=== PATIENT | female | born 1945 | race Caucasian/White ===

== ENCOUNTER 2016-11-19 15:48 | Outpatient (CLI) | payer MEDICARE, OTHER | END 2016-11-19 15:49 | disposition home or self-care (01) | DX: Z12.31 Encounter for screening mammogram for malignant neoplasm of breast (principal) ==

== ENCOUNTER 2017-04-10 10:30 | Outpatient (CLI) | payer MEDICARE, OTHER ==
[2017-04-10 13:30] LABS: BASOPHILS # (AUTO) 0.1 10^3/uL (0.0-0.1); BASOPHILS % (AUTO) 1.1 %; EOSINOPHILS # (AUTO) 0.3 10^3/uL (0.0-0.7); EOSINOPHILS % (AUTO) 3.4 %; HCT - HEMATOCRIT 21.8 % (37.0-47.0); HGB - HEMOGLOBIN 6.3 g/dL (12.0-16.0); LYMPHOCYTES # (AUTO) 1.4 10^3/uL (1.5-3.5); LYMPHOCYTES % (AUTO) 16.6 %; MEAN CORPUSCULAR HEMOGLOBIN 22.1 pg (27.0-31.0); MEAN CORPUSCULAR HGB CONC 29.1 g/dL (32.0-36.0); MEAN CORPUSCULAR VOLUME 75.9 fL (81.0-99.0); MEAN PLATELET VOLUME 9.1 fL (7.9-10.8); MONOCYTES # (AUTO) 0.6 10^3/uL (0.0-1.0); MONOCYTES % (AUTO) 7.3 %; NEUTROPHILS # (AUTO) 6.1 10^3/uL (1.5-6.6); NEUTROPHILS % (AUTO) 71.6 %; NUCLEATED RED BLOOD CELLS AUTO 0.1 /100WBC; RED BLOOD COUNT 2.88 10^6/uL (4.20-5.40); RED CELL DISTRIBUTION WIDTH 20.1 % (12.0-15.0); UNCORRECTED WHITE BLOOD COUNT 8.5 x10^3/uL; WHITE BLOOD COUNT 8.5 x10^3/uL (4.8-10.8)
[2017-04-10 13:39] LABS: ALBUMIN/GLOBULIN RATIO 1.4 (1.0-2.2); BILIRUBIN,TOTAL 0.3 mg/dL (0.2-1.0); BUN - BLOOD UREA NITROGEN 16 mg/dL (6-20); CALCIUM 9.2 mg/dL (8.5-10.3); CARBON DIOXIDE - CO2 25 mmol/L (21-32); CHLORIDE 107 mmol/L (101-111); CREATININE 0.6 mg/dL (0.4-1.0); GFR - MDRD 98 (>89); GLUCOSE 121 mg/dL (70-100); IRON 7 ug/dL (28-170); SODIUM 140 mmol/L (135-145); TOTAL IRON BINDING CAPACITY 529 ug/dL (250-450); TOTAL PROTEIN 6.7 g/dL (6.7-8.2); TRANSFERRIN 378 mg/dL (192-382)
[2017-04-10 13:49] LABS: FERRITIN 9.4 ng/mL (11.0-306.8)
[2017-04-10 14:03] LABS: THYROID STIMULATING HORMONE 1.71 uIU/mL (0.34-5.60)
== END 2017-04-10 10:31 ==
LOC: LAB.WCP 10:30
PROVIDERS: ATTEND Family Medicine
DX: R53.83 Other fatigue (principal); D50.9 Iron deficiency anemia, unspecified; R05 Cough
CPT/HCPCS: 36415; 80053; 82728; 83540; 84443; 84466; 85025

== ENCOUNTER 2017-04-10 14:53 | Observation (INO) | payer MEDICARE, OTHER ==
--- NOTE | 2017-04-10 15:31 | ED Physician Documentation ---
PD HPI GI BLEED - Stated complaint Stated Complaint: SOA/WEAKNESS - Chief complaint Chief Complaint: General - History obtained from History obtained from: Patient - History of Present Illness Timing - onset: How many days ago (several) Timing - duration: Days (several) Timing - details: Gradual onset Associated symptoms: Black/tarry stool (states that she had black tarry stools, this has since resolved since starting back on her PPI.), Other (short of breath with walking 3-5 steps). No: Vomiting, Coffee ground emesis, Hematemesis , BRBPR, Maroon stool, Constipation, Abdominal pain, Dizzy, Near syncope / syncope, Loss of appetite Contributing factors: No: Sick contact, Bad food, Travel, Recent antibiotics, Alcohol use, Aspirin use, NSAID use, Stress, Anticoagulated, Diabetes Improved by: Other (rest) Worsened by: Other (walking) Similar symptoms before: Diagnosis Recently seen: Clinic (sent from Dr. Vieira office for transfusion after Hgb 6.3 on lab draw today. Colonoscopy last year, reportedly showed a polyp.) - Additional information Additional information: TKR February 2017 at [facility]. Review of Systems Ten Systems: 10 systems reviewed and negative Constitutional: denies: Fever, Chills Ears: denies: Ear pain Nose: denies: Rhinorrhea / runny nose, Congestion Throat: denies: Sore throat Cardiac: denies: Chest pain / pressure Respiratory: reports: Cough (dry). denies: Wheezing GI: denies: Abdominal Pain, Nausea, Vomiting, Diarrhea Skin: denies: Rash Musculoskeletal: denies: Neck pain, Back pain Neurologic: reports: Generalized weakness. 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 HEENT: Other - Present Medications Home Medications: Ambulatory Orders Medication Instructions Recorded Confirmed Atorvastatin Calcium [Lipitor] 40 mg PO DAILY 04/03/16 04/10/17 Esomeprazole Magnesium [Nexium] 10 mg PO DAILY 04/03/16 04/10/17 Felodipine [Felodipine ER] 5 mg PO DAILY 04/03/16 04/10/17 Loratadine 10 mg PO DAILY 04/03/16 04/10/17 Propranolol [Inderal] 60 mg PO DAILY 04/03/16 04/10/17 - Allergies Allergies/Adverse Reactions: Allergies Allergy/AdvReac Type Severity Reaction Status Date / Time venom-honey bee Allergy Edema Verified 04/04/16 13:42 [bee venom (honey bee)] PD ED PE NORMAL - Vitals Vital signs reviewed: Yes - General General: Alert and oriented X 3, No acute distress, Well developed/nourished - HEENT HEENT: PERRL, Moist mucous membranes - Neck Neck: Supple, no meningeal sign - Cardiac Cardiac: RRR, Strong equal pulses - Respiratory Respiratory: No respiratory distress, Clear bilaterally - Abdomen Abdomen: Soft, Non tender, Non distended - Rectal Rectal: Other (no stool in rectal vault. ) - Back Back: No spinal TTP - Derm Derm: Warm and dry, No rash - Extremities Extremities: No edema, No calf tenderness / cord - Neuro Neuro: Alert and oriented X 3 - Psych Psych: Normal mood, Normal affect Results - Vitals Vitals: Vital Signs - 24 hr 04/10/17 04/10/17 15:10 17:11 Temperature 36.4 C L Heart Rate 78 72 Respiratory 20 20 Rate Blood Pressure 124/63 130/53 L O2 Saturation 100 97 Oxygen O2 Source Room air - Labs Labs: Laboratory Tests 04/10/17 04/10/17 15:30 15:30 Blood Type A POSITIVE Cancelled Antibody Screen NEGATIVE Cancelled Crossmatch IS Only See Detail PD MEDICAL DECISION MAKING - ED course Complexity details: reviewed old records, reviewed results, re-evaluated patient , considered differential, d/w patient, d/w senior erp consultant ED course: Call placed to hospitalist at 1505. Patient is a 72-year-old female who presents to the emergency department with symptomatic anemia. Thought to be secondary to her gastric ulcers, dark stools have since resolved after taking her PPI. No stool in the rectal vault here. She is well-appearing, nontoxic. Afebrile. Discussed the case with the hospitalist who accepts. Also discussed with Dr. Ford, PCP who wants her placed in observation for blood transfusion. This document was made in part using voice recognition software. While efforts are made to proofread this document, sound alike and grammatical errors may occur. Departure - Departure Disposition: ED Place in Observation Clinical Impression: Symptomatic anemia Condition: Stable Discharge Date/Time: 04/10/17 18:30
[2017-04-10] MEDS ORDERED: ONDANSETRON ODT 4 MG TABLET TL PRN (18:06)
[2017-04-10] MEDS ORDERED: ACETAMINOPHEN 325 MG TABLET PO PRN (18:06)
--- NOTE | 2017-04-10 18:10 | HISTORY & PHYSICAL EXAMINATION ---
Chief Complaint - Chief Complaint Chief Complaint: Gi bleeding History of Present Illness - Admitted From Admitted From:: ER - History Obtained From Records Reviewed: yes History obtained from: patient - History of Present Illness HPI Comment/Other: Patient is a 72 year old female who presented to the ER with complaint of GI bleeding. Patient was sent from the Clinic (sent from Dr. Vieira office for transfusion after Hgb 6.3 on lab draw today. Colonoscopy last year, reportedly showed a polyp.) patient admits to weakness and fatigue. she has had similar symptoms in the past. She has been taking NSAID. she recently had a knee surgery and believes that using motrin afterwards might have contributed to the bleeding. She has no significant past medical history for the bleeding. She had some bleeding in her stool as well as emesis. 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 HEENT: reports: Other - POLST Patient has POLST: No Meds/Allgy - Home Medications Home Medications: Ambulatory Orders Medication Instructions Recorded Confirmed Atorvastatin Calcium [Lipitor] 40 mg PO DAILY 04/03/16 04/10/17 Esomeprazole Magnesium [Nexium] 10 mg PO DAILY 04/03/16 04/10/17 Felodipine [Felodipine ER] 5 mg PO DAILY 04/03/16 04/10/17 Loratadine 10 mg PO DAILY 04/03/16 04/10/17 Cholecalciferol [Vitamin D3] 5,000 unit PO BID #60 capsule 04/11/17 Propranolol ER [Inderal LA] 60 mg PO DAILY 04/11/17 04/11/17 - Allergies Allergies/Adverse Reactions: Allergies Allergy/AdvReac Type Severity Reaction Status Date / Time venom-honey bee Allergy Edema Verified 04/04/16 13:42 [bee venom (honey bee)] Exam - Vital Signs Reviewed Vital Signs: Yes Vital Signs: Vital Signs x48h Temp Pulse Resp BP Pulse Ox 04/10/17 17:11 72 20 130/53 L 97 04/10/17 15:10 36.4 C L 78 20 124/63 100 - Physical Exam General Appearance: positive: No acute distress, Alert Eyes Bilateral: positive: Normal inspection, PERRL, EOMI ENT: positive: ENT inspection nml, Pharynx nml, Dry mucous membranes Neck: positive: Nml inspection, Thyroid nml, No JVD, Trachea midline Respiratory: positive: Chest non-tender, No respiratory distress, Breath sounds nml Cardiovascular: positive: Regular rate & rhythm, No murmur, No gallop Abdomen: positive: Non-tender, No organomegaly, No distention. negative: Guarding, Rebound Rectal: positive: Stool - heme POS, Black stool, Bloody stool Back: positive: Nml inspection Skin: positive: No rash, Warm, Dry, Other (pale color) Extremities: positive: Non-tender, Full ROM, Nml appearance Neurologic/Psychiatric: positive: Oriented x3, CN's nml (2-12), Motor nml, Sensation nml, Mood/affect nml Conclusion/Plan - Problem List (1) Symptomatic anemia Conclusion/Plan: acute secondary to NSAID usage. transfused with 2 units of PRBC and give protonix 80mg IV now. monitor CBC in daily lab draws. tylenol and benadryl, lasix in between units. oxygen 2 liters NC for supplemental oxygen (2) Chronic GERD Conclusion/Plan: continue on PPI and avoid eating late in the evening (3) Obesity (BMI 30.0-34.9) Conclusion/Plan: continue on low fat low calorie diet and encourage ambulation and exercise (4) Vitamin D deficiency, unspecified Conclusion/Plan: chronic. continue on vitamin D supplement daily - Lab Results Lab results reviewed: Yes Fish Bones: 04/11/17 05:43 04/10/17 18:19 - EKG Results EKG Interpreted Independently: Yes Issues/Core Measures - Anticipated LOS Anticipated Stay Length: Less than 2 midnights - Issues Hospital Issues and Management Plan: Patient will need one overnight for transfusion of packed red blood cells. - DVT/VTE - Prophylaxis VTE/DVT Device ordered at admit?: No Not Ordered - Medical Reason: Contraindicated (patient has GI bleed and ambulating) VTE/DVT Prophylaxis med ordered at admit?: No Not Ordered - Medical Reason: Contraindicated (GI bleeding)
[2017-04-10] MEDS ORDERED: FUROSEMIDE 20 MG/2 ML VIAL IVP PRN (18:21)
[2017-04-10] MEDS ORDERED: diphenhydrAMINE INJ 50 MG/ML VIAL IVP PRN (18:24)
[2017-04-10 18:30] LABS: BASOPHILS # (AUTO) 0.1 10^3/uL (0.0-0.1); EOSINOPHILS # (AUTO) 0.3 10^3/uL (0.0-0.7); EOSINOPHILS % (AUTO) 3.7 %; IMMATURE RETIC FRACTION 0.48; LYMPHOCYTES # (AUTO) 1.7 10^3/uL (1.5-3.5); LYMPHOCYTES % (AUTO) 24.7 %; MEAN CORPUSCULAR HGB CONC 29.2 g/dL (32.0-36.0); MEAN CORPUSCULAR VOLUME 75.5 fL (81.0-99.0); MEAN PLATELET VOLUME 8.3 fL (7.9-10.8); MONOCYTES # (AUTO) 0.6 10^3/uL (0.0-1.0); MONOCYTES % (AUTO) 8.9 %; NEUTROPHILS # (AUTO) 4.2 10^3/uL (1.5-6.6); NEUTROPHILS % (AUTO) 61.7 %; NUCLEATED RED BLOOD CELLS AUTO 0.1 /100WBC; RED BLOOD COUNT 2.64 10^6/uL (4.20-5.40); RED CELL DISTRIBUTION WIDTH 20.6 % (12.0-15.0); UNCORRECTED WHITE BLOOD COUNT 6.9 x10^3/uL; WHITE BLOOD COUNT 6.9 x10^3/uL (4.8-10.8)
[2017-04-10 18:39] LABS: HGB - HEMOGLOBIN 5.8 g/dL (12.0-16.0)
[2017-04-10 19:24] LABS: FERRITIN 8.1 ng/mL (11.0-306.8)
[2017-04-10 19:29] LABS: ALBUMIN/GLOBULIN RATIO 1.5 (1.0-2.2); BILIRUBIN,TOTAL 0.2 mg/dL (0.2-1.0); CALCIUM 8.9 mg/dL (8.5-10.3); CREATININE 0.6 mg/dL (0.4-1.0); POTASSIUM 3.6 mmol/L (3.5-5.0); TOTAL PROTEIN 5.9 g/dL (6.7-8.2)
[2017-04-10] MEDS: SODIUM CHLORIDE FLUSH 0.9% 10 ML SYRINGE IVP PRN (19:49)
[2017-04-10] MEDS: PANTOPRAZOLE 40 MG VIAL IVP SCH (19:49)
[2017-04-10] MEDS: SODIUM CHLORIDE FLUSH 0.9% 10 ML SYRINGE IVP SCH (22:48)
[2017-04-11] MEDS: SODIUM CHLORIDE FLUSH 0.9% 10 ML SYRINGE IVP PRN ×2 (00:55→06:36)
[2017-04-11] MEDS: SODIUM CHLORIDE 0.9% 1,000 ML IV SCH ×2 (05:00→06:36)
[2017-04-11] MEDS: SODIUM CHLORIDE FLUSH 0.9% 10 ML SYRINGE IVP SCH (05:01)
[2017-04-11 06:03] LABS: HCT - HEMATOCRIT 27.5 % (37.0-47.0); HGB - HEMOGLOBIN 8.5 g/dL (12.0-16.0)
[2017-04-11] MEDS: PANTOPRAZOLE 40 MG VIAL IVP SCH (06:35)
[2017-04-11 07:47] VITALS: BP 130/55
[2017-04-11] MEDS ORDERED: IRON SUCROSE 100 MG in SODIUM CHLORIDE 0.9% 100ML 100 ML IV ONE ×2 (08:00→09:05)
[2017-04-11] MEDS ORDERED: PROPRANOLOL ER 60 MG CAPSULE PO SCH (09:00)
[2017-04-11] MEDS ORDERED: FELODIPINE ER 2.5 MG TABLET PO SCH (09:00)
[2017-04-11] MEDS ORDERED: POLYETHYLENE GLYCOL 3350 17 GM PACKET PO SCH (09:00)
[2017-04-11] MEDS ORDERED: CYANOCOBALAMIN 1,000 MCG/ML VIAL IM ONE (09:04)
--- NOTE | 2017-04-11 09:06 | Discharge Plan ---
Discharge Plan Disposition: Home, Self Care Condition: Good Prescriptions: Cholecalciferol [Vitamin D3] 5,000 unit PO BID #60 capsule Diet: Cardiac Activity Restrictions: Activity as Tolerated Shower Restrictions: No Driving Restrictions: No Weight Bearing: Full Weight Instruction Topics: ED Anemia Iron Deficiency, Fatigue Manage Additional Instructions or Follow Up instructions: Please continue on home medications as prescribed. You will need to take vitamin D and add ferrous sulfate to your diet. You have been given a prescription for these. Take more calcium daily as well. Please continue your regular diet and drink plenty of water daily Get plenty of sleep. 7-8 hours nightly. continue with rest breaks daily Walking is a great form of exercise. you need to get exercise daily, prefer 30 minutes a day followup with your primary care provider within 1 week of discharge. Stop taking NSAIDS like motrin or ibuprofen since these can make you bleed No Smoking: If you smoke, Please STOP! Call for help. Follow-up with: Alirio Ford MD [Primary Care Provider] -
--- NOTE | 2017-04-11 09:06 | DISCHARGE SUMMARY ---
"Discharge Summary Admit Date: 04/10/17 Discharge Date: 04/11/17 Discharging Provider: Meenakshi Garrett APRN Code Status: Attempt Resuscitation Condition at Discharge: Good Discharge Disposition: 01 Home, Self Care Discharge Facility Name: home - DIAGNOSES Admission Diagnoses: 1. acute GI bleeding with symptomatic anemia from blood loss 2. Vitamin D deficiency 3. Obesity with BMI>30 4. Chronic GERD Discharge Diagnoses with Status of Each Condition: 1. acute GI bleeding with symptomatic anemia from blood loss 2. Vitamin D deficiency 3. Obesity with BMI>30 4. Chronic GERD - HPI History of Present Illness: Timing - onset: How many days ago (several) Timing - duration: Days (several) Timing - details: Gradual onset Associated symptoms: Black/tarry stool (states that she had black tarry stools, this has since resolved since starting back on her PPI.), Other (short of breath with walking 3-5 steps). No: Vomiting, Coffee ground emesis, Hematemesis , BRBPR, Maroon stool, Constipation, Abdominal pain, Dizzy, Near syncope / syncope, Loss of appetite Contributing factors: No: Sick contact, Bad food, Travel, Recent antibiotics, Alcohol use, Aspirin use, NSAID use, Stress, Anticoagulated, Diabetes Improved by: Other (rest) Worsened by: Other (walking) Similar symptoms before: Diagnosis Recently seen: Clinic (sent from Dr. Vieira office for transfusion after Hgb 6.3 on lab draw today. Colonoscopy last year, reportedly showed a polyp.) - CONSULTS | PROCEDURES Consultations: none Procedures: Blood transfusion - HOSPITAL COURSE Hospital Course: Patient was seen recently at Clinic (sent from Dr. Vieira office for transfusion after Hgb 6.3 on lab draw today. Colonoscopy last year, reportedly showed a polyp.) She was admitted for 2 units of packed red blood cells with treatment with protonix 40mg BID for bleeding and for GERD. She continued on low calorie diet and encouraged for ambulation. She continued on her PPi for GERD and on blood pressure medications and statin for hyperlipidemia. She was discharged home the next day after her hemoglobin was checked and improved to > 8.5. She was stable and not symptomatic. She remained on oxygen for support while getting the PRBC. Vitals signs were stable at time of discharge. - ALLERGIES Allergies/Adverse Reactions: Allergies Allergy/AdvReac Type Severity Reaction Status Date / Time venom-honey bee Allergy Edema Verified 04/04/16 13:42 [bee venom (honey bee)] - MEDICATIONS Home Medications: Ambulatory Orders Medication Instructions Recorded Confirmed Atorvastatin Calcium [Lipitor] 40 mg PO DAILY 04/03/16 04/10/17 Esomeprazole Magnesium [Nexium] 10 mg PO DAILY 04/03/16 04/10/17 Felodipine [Felodipine ER] 5 mg PO DAILY 04/03/16 04/10/17 Loratadine 10 mg PO DAILY 04/03/16 04/10/17 Cholecalciferol [Vitamin D3] 5,000 unit PO BID #60 capsule 04/11/17 Propranolol ER [Inderal LA] 60 mg PO DAILY 04/11/17 04/11/17 - PHYSICAL EXAM AT DISCHARGE General Appearance: positive: No acute distress, Alert Eyes Bilateral: positive: Normal inspection, PERRL, EOMI ENT: positive: ENT inspection nml, Pharynx nml, No signs of dehydration Neck: positive: Nml inspection, Thyroid nml, No JVD, Trachea midline Respiratory: positive: Chest non-tender, No respiratory distress, Breath sounds nml Cardiovascular: positive: Regular rate & rhythm, No murmur, No gallop Peripheral Pulses: positive: 2+ Abdomen: positive: Non-tender Rectal: positive: Stool - heme POS Back: positive: Nml inspection Skin: positive: Color nml, No rash, Pallor (pale) Extremities: positive: Non-tender, Full ROM, Nml appearance, No pedal edema Neurologic/Psychiatric: positive: Oriented x3, CN's nml (2-12), Motor nml, Sensation nml, Mood/affect nml - LABS Result Diagrams: 04/11/17 05:43 04/10/17 18:19 - FOLLOW UP Follow Up: patient encouraged to followup with primary care provider to schedule an outpatient followup for colonoscopy. Time spent on discharge was 40 minutes for planning and education and assessment. Pt comfortable with plan and will return if he worsens. Pt counseled regarding expected course and signs and symptoms for which I believe an urgent re-evaluation would be necessary. Pt with good understanding and agreement to plan."
[2017-04-11] MEDS ORDERED: CHOLECALCIFEROL 5,000 UNIT CAPSULE PO SCH (10:00)
== END 2017-04-11 13:39 | disposition home or self-care (01) ==
LOC: ED 14:53 → OBS 17:27
PROVIDERS: ADMIT Nurse Practitioner; ATTEND Nurse Practitioner
DX: D62 Acute posthemorrhagic anemia (principal); K92.1 Melena; T39.315A Adverse effect of propionic acid derivatives, initial encounter; E55.9 Vitamin D deficiency, unspecified; E66.9 Obesity, unspecified; Z68.33 Body mass index [BMI] 33.0-33.9, adult; K21.9 Gastro-esophageal reflux disease without esophagitis; I10 Essential (primary) hypertension; E78.5 Hyperlipidemia, unspecified; Z96.659 Presence of unspecified artificial knee joint; Z86.010 Personal history of colon polyps; R53.83 Other fatigue; D50.9 Iron deficiency anemia, unspecified; R05 Cough
CPT/HCPCS: 36415; 36430; 80053; 82607; 82728; 83540; 83615; 84443; 84466; 85014; 85018; 85025; 85044; 86850; 86900; 86901; 86920; 96361; 96372; 96374; 96375; 96376; 99283; 99284; A9270; G0378; J1756; P9016

== ENCOUNTER 2017-05-03 08:46 | Outpatient (CLI) | payer MEDICARE, OTHER ==
[2017-05-03 12:59] LABS: ALBUMIN/GLOBULIN RATIO 1.4 (1.0-2.2); BILIRUBIN,TOTAL 0.4 mg/dL (0.2-1.0); BUN - BLOOD UREA NITROGEN 16 mg/dL (6-20); CALCIUM 9.4 mg/dL (8.5-10.3); CARBON DIOXIDE - CO2 28 mmol/L (21-32); CHLORIDE 104 mmol/L (101-111); CHOL/HDL RATIO 3.5 (<4.4); CHOLESTEROL 172 mg/dL; CREATININE 0.6 mg/dL (0.4-1.0); GFR - MDRD 98 (>89); GLUCOSE 107 mg/dL (70-100); HDL CHOLESTEROL 49 mg/dL; LDL/HDL RATIO 1.9 (<4.4); POTASSIUM 4.1 mmol/L (3.5-5.0); SODIUM 140 mmol/L (135-145); TOTAL PROTEIN 7.1 g/dL (6.7-8.2); TRIGLYCERIDES 143 mg/dL; VLDL CHOLESTEROL 29 mg/dL
== END 2017-05-03 08:47 | disposition home or self-care (01) ==
LOC: LAB.WCP 08:46
PROVIDERS: ATTEND Family Medicine
DX: G25.0 Essential tremor (principal); E78.9 Disorder of lipoprotein metabolism, unspecified; I10 Essential (primary) hypertension
CPT/HCPCS: 36415; 80053; 80061

== ENCOUNTER 2017-11-20 13:55 | Outpatient (CLI) | payer MEDICARE, OTHER ==
--- NOTE | 2017-11-21 14:18 | Mammography Report ---
DIGITAL SCREENING MAMMOGRAM: 11/20/2017 CLINICAL INDICATION: A 72-year-old for screening. COMPARISON: 10/2015, 10/2014, 09/2013, 08/2012, 08/2011, 07/2010. TECHNIQUE: Routine CC and MLO projections were obtained of the breasts. FINDINGS: The breasts again demonstrate scattered fibroglandular densities bilaterally. Asymmetric parenchyma in the right upper outer quadrant is stable. Coarse and punctate, typically benign calcifications are present. No suspicious masses, clustered microcalcifications, or regions of architectural distortion are identified. IMPRESSION: BENIGN FINDINGS. RECOMMENDATION: Routine annual screening unless otherwise clinically indicated. BIRADS CATEGORY 2 - benign findings. STANDARD QUALIFYING STATEMENTS: 1. This examination was reviewed with the aid of Computer-Aided Detection (CAD). 2. A negative or benign imaging report should not delay biopsy if clinically suspicious findings are present. Consider surgical consultation if warranted. More than 5% of cancers are not identified by imaging. 3. Dense breasts may obscure an underlying neoplasm. TD: 11/21/2017 14:17
== END 2017-11-20 13:56 | disposition home or self-care (01) ==
LOC: DI.N 13:55
PROVIDERS: ATTEND Obstetrics & Gynecology
DX: Z12.31 Encounter for screening mammogram for malignant neoplasm of breast (principal)
CPT/HCPCS: 77067

== ENCOUNTER 2018-06-25 09:45 | Outpatient (CLI) | payer MEDICARE, OTHER | END 2018-06-25 09:46 | disposition home or self-care (01) | LOC: LAB.R 09:45 | PROVIDERS: ATTEND Family Medicine | DX: K52.9 Noninfective gastroenteritis and colitis, unspecified (principal) | CPT/HCPCS: 81599; 83630; 87045; 87046; 87329; 87493 ==

== ENCOUNTER 2019-01-05 08:37 | Outpatient (CLI) | payer MEDICARE, OTHER ==
[2019-01-05 14:15] LABS: BASOPHILS # (AUTO) 0.1 10^3/uL (0.0-0.1); BASOPHILS % (AUTO) 0.7 %; EOSINOPHILS # (AUTO) 0.2 10^3/uL (0.0-0.7); HGB - HEMOGLOBIN 15.1 g/dL (12.0-16.0); LYMPHOCYTES # (AUTO) 1.6 10^3/uL (1.5-3.5); LYMPHOCYTES % (AUTO) 14.3 %; MEAN CORPUSCULAR HEMOGLOBIN 32.2 pg (27.0-31.0); MEAN CORPUSCULAR HGB CONC 33.4 g/dL (32.0-36.0); MEAN CORPUSCULAR VOLUME 96.5 fL (81.0-99.0); MEAN PLATELET VOLUME 8.7 fL (7.9-10.8); MONOCYTES # (AUTO) 0.7 10^3/uL (0.0-1.0); MONOCYTES % (AUTO) 6.7 %; NEUTROPHILS # (AUTO) 8.3 10^3/uL (1.5-6.6); NEUTROPHILS % (AUTO) 76.3 %; PLT - PLATELET COUNT 289 10^3/uL (130-450); RED CELL DISTRIBUTION WIDTH 12.9 % (12.0-15.0); WHITE BLOOD COUNT 10.8 x10^3/uL (4.8-10.8)
[2019-01-05 15:00] LABS: ALBUMIN/GLOBULIN RATIO 1.3 (1.0-2.2); ALKALINE PHOSPHATASE 66 IU/L (42-121); ALT ALANINE AMINOTRANSFERASE 19 IU/L (10-60); AST ASPARTATE AMINOTRANSFERASE 21 IU/L (10-42); BILIRUBIN,TOTAL 0.5 mg/dL (0.2-1.0); BUN - BLOOD UREA NITROGEN 13 mg/dL (6-20); CALCIUM 9.5 mg/dL (8.5-10.3); CARBON DIOXIDE - CO2 26 mmol/L (21-32); CHLORIDE 106 mmol/L (101-111); CHOL/HDL RATIO 3.5 (<4.4); CHOLESTEROL 170 mg/dL; CREATININE 0.6 mg/dL (0.4-1.0); GFR - MDRD 98 (>89); GLUCOSE 116 mg/dL (70-100); HDL CHOLESTEROL 49 mg/dL; LDL CHOLESTEROL,CALCULATED 89 mg/dL; LDL/HDL RATIO 1.8 (<4.4); SODIUM 139 mmol/L (135-145); VLDL CHOLESTEROL 32 mg/dL
== END 2019-01-05 08:38 | disposition home or self-care (01) ==
LOC: LAB.WCP 08:37
PROVIDERS: ATTEND Family Medicine
DX: I10 Essential (primary) hypertension (principal); E78.5 Hyperlipidemia, unspecified
CPT/HCPCS: 36415; 80053; 80061; 83721; 84443; 85025

== ENCOUNTER 2019-01-16 14:53 | Outpatient (CLI) | payer MEDICARE, OTHER ==
--- NOTE | 2019-01-19 08:43 | Mammography Report ---
Reason: SCREENING MAMMO Procedure Date: 01/16/2019 Accession Number: [id number] / [id number] Procedure: [facility] - Screening Mammo w/Lico CPT Code: FULL RESULT: EXAM: Screening Mammo w/Lico DATE: 01/16/2019 3:28 PM CLINICAL HISTORY: Screening encounter. No reported risk factors. TECHNIQUE: (B) - Bilateral CC and MLO views were obtained. COMPARISON: 11/20/2017 through 10/27/2014. PARENCHYMAL PATTERN: (A) - The breast(s) demonstrate(s) scattered fibroglandular densities. FINDINGS: There are coarse typically benign calcifications. There are no suspicious masses, calcifications, or areas of distortion. IMPRESSION: Benign findings. BI-RADS category 2. RECOMMENDATION: (ANNUAL) - Recommend routine annual screening mammography. BI-RADS CATEGORY: (2) - Benign Findings. STANDARD QUALIFYING STATEMENTS: 1. This examination was not reviewed with the aid of Computer-Aided Detection (CAD). 2. A negative or benign imaging report should not preclude biopsy if clinically suspicious findings are present. 3. Dense breasts may obscure an underlying neoplasm. 4. This examination was reviewed with the aid of 3D breast imaging (tomosynthesis).
== END 2019-01-16 14:54 | disposition home or self-care (01) ==
LOC: DI 14:53
DX: Z12.31 Encounter for screening mammogram for malignant neoplasm of breast (principal)
CPT/HCPCS: 77063; 77067

== ENCOUNTER 2019-04-02 08:00 | Outpatient (CLI) | payer MEDICARE, OTHER ==
[2019-04-02 12:56] LABS: BASOPHILS % (AUTO) 0.5 %; EOSINOPHILS # (AUTO) 0.2 10^3/uL (0.0-0.7); EOSINOPHILS % (AUTO) 2.9 %; HGB - HEMOGLOBIN 14.6 g/dL (12.0-16.0); LYMPHOCYTES # (AUTO) 1.7 10^3/uL (1.5-3.5); LYMPHOCYTES % (AUTO) 22.9 %; MEAN CORPUSCULAR HEMOGLOBIN 32.2 pg (27.0-31.0); MEAN CORPUSCULAR HGB CONC 31.9 g/dL (32.0-36.0); MEAN CORPUSCULAR VOLUME 100.9 fL (81.0-99.0); MEAN PLATELET VOLUME 10.6 fL (7.9-10.8); MONOCYTES # (AUTO) 0.6 10^3/uL (0.0-1.0); MONOCYTES % (AUTO) 7.8 %; NEUTROPHILS # (AUTO) 4.9 10^3/uL (1.5-6.6); NEUTROPHILS % (AUTO) 65.5 %; PLT - PLATELET COUNT 289 10^3/uL (130-450); RED BLOOD COUNT 4.53 10^6/uL (4.20-5.40); RED CELL DISTRIBUTION WIDTH 13.2 % (12.0-15.0); WHITE BLOOD COUNT 7.5 x10^3/uL (4.8-10.8)
[2019-04-02 13:24] LABS: ALBUMIN/GLOBULIN RATIO 1.4 (1.0-2.2); BILIRUBIN,TOTAL 0.9 mg/dL (0.2-1.0); CALCIUM 9.9 mg/dL (8.5-10.3); CREATININE 0.6 mg/dL (0.4-1.0); TOTAL PROTEIN 6.9 g/dL (6.7-8.2)
== END 2019-04-02 23:59 | disposition home or self-care (01) ==
LOC: LAB.WCP 08:00
PROVIDERS: ATTEND Family Medicine
DX: R73.9 Hyperglycemia, unspecified (principal); D50.9 Iron deficiency anemia, unspecified; I10 Essential (primary) hypertension
CPT/HCPCS: 36415; 80053; 82728; 83540; 84466; 85025

== ENCOUNTER 2019-10-06 07:49 | Outpatient (CLI) | payer MEDICARE, OTHER | END 2019-10-06 07:50 | disposition critical access hospital (66) | LOC: EMS 07:49 | PROVIDERS: ATTEND Surgery | DX: R00.0 Tachycardia, unspecified (principal) | CPT/HCPCS: A0425; A0427 ==

== ENCOUNTER 2019-10-06 08:13 | Observation (INO) | payer MEDICARE, OTHER ==
[2019-10-06] MEDS: SODIUM CHLORIDE 0.9% 1,000 ML IV ONE ×2 (08:35→11:29)
[2019-10-06 08:45] LABS: BASOPHILS % (AUTO) 0.4 %; EOSINOPHILS # (AUTO) 0.2 10^3/uL (0.0-0.7); HGB - HEMOGLOBIN 14.8 g/dL (12.0-16.0); LYMPHOCYTES # (AUTO) 1.4 10^3/uL (1.5-3.5); LYMPHOCYTES % (AUTO) 14.7 %; MEAN CORPUSCULAR HEMOGLOBIN 32.6 pg (27.0-31.0); MEAN CORPUSCULAR HGB CONC 32.6 g/dL (32.0-36.0); MEAN PLATELET VOLUME 9.9 fL (7.9-10.8); MONOCYTES # (AUTO) 0.7 10^3/uL (0.0-1.0); NEUTROPHILS % (AUTO) 75.3 %; PLT - PLATELET COUNT 289 10^3/uL (130-450); RED BLOOD COUNT 4.54 10^6/uL (4.20-5.40); RED CELL DISTRIBUTION WIDTH 12.5 % (12.0-15.0); WHITE BLOOD COUNT 9.4 x10^3/uL (4.8-10.8)
--- NOTE | 2019-10-06 08:47 | XRAY Report ---
Reason: chest pain Procedure Date: 10/06/2019 Accession Number: [id number] / [id number] Procedure: XR - Chest 1 View X-Ray CPT Code: 97723 Final Report FULL RESULT: EXAM: CHEST RADIOGRAPHY EXAM DATE: 10/06/2019 08:36 AM. CLINICAL HISTORY: Chest pain. COMPARISON: None. TECHNIQUE: 1 view. FINDINGS: Lungs/Pleura: No focal opacities evident. No pleural effusion. No pneumothorax. Mediastinum: There is cardiomegaly. There is there is rounded retrocardiac opacity which likely represents moderate to large size hiatal hernia. Other: There is bilateral shoulder degenerative disease. IMPRESSION: 1. There is cardiomegaly. 2. Likely moderate to large sized hiatal hernia. 3. No acute intrathoracic plain film abnormality. RADIA
[2019-10-06 08:53] LABS: PT - PROTHROMBIN TIME 11.6 secs (9.9-12.6)
[2019-10-06 08:59] LABS: ALBUMIN 3.8 g/dL (3.2-5.5); ALBUMIN/GLOBULIN RATIO 1.5 (1.0-2.2); CALCIUM 8.9 mg/dL (8.5-10.3); CREATININE 0.7 mg/dL (0.4-1.0); TOTAL PROTEIN 6.3 g/dL (6.7-8.2)
[2019-10-06] MEDS ORDERED: diltiaZEM INJ 5 MG/ML VIAL IVP STA (09:32)
[2019-10-06] MEDS: diltiaZEM INJ 125 MG in DEXTROSE 5% 100 ML IV STA ×2 (09:50→11:27)
--- NOTE | 2019-10-06 10:06 | ED Physician Documentation ---
History of Present Illness - Stated complaint Stated Complaint: RHR/ WEAKNESS - Chief complaint Chief Complaint: Cardiac - History obtained from History obtained from: Patient - History of Present Illness Timing: Today - Additonal information Additional information: This is a 74-year-old woman Who presents by ambulance with complaints that this morning her heart was racing. During the night she felt it when she got up to go to the bathroom but then it quit after a short period of time. And this morning around 7 AM she was beating so fast she felt she was going to pass out. She called the ambulance who found her in A. fib with rates in the 160s. They gave her 15 mg Cardizem bolus and she is feeling better. Patient denies any chest pain or shortness of breath. Maybe some mild nausea. No stuffiness or sore throat. She is never had anything like this before. She has chronic edema in her lower extremities and she has had a transfusion due to GI bleed following surgery and had to be transfused about 2 years ago. She still takes an iron supplement. Denies recent cough or dysuria. Review of Systems Constitutional: denies: Fever Eyes: denies: Loss of vision Nose: denies: Rhinorrhea / runny nose, Congestion Throat: denies: Sore throat Cardiac: reports: Palpitations, Pedal edema. denies: Chest pain / pressure Respiratory: denies: Dyspnea, Cough GI: reports: Nausea. denies: Vomiting, Diarrhea : denies: Dysuria Neurologic: reports: Generalized weakness, Near syncope. 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 HEENT: Other - Present Medications Home Medications: Ambulatory Orders Medication Instructions Recorded Confirmed Atorvastatin Calcium [Lipitor] 40 mg PO DAILY 04/03/16 04/10/17 Esomeprazole Magnesium [Nexium] 10 mg PO DAILY 04/03/16 04/10/17 Felodipine [Felodipine ER] 5 mg PO DAILY 04/03/16 04/10/17 Loratadine 10 mg PO DAILY 04/03/16 04/10/17 Cholecalciferol [Vitamin D3] 5,000 unit PO BID #60 capsule 04/11/17 Propranolol ER [Inderal LA] 60 mg PO DAILY 04/11/17 04/11/17 - Allergies Allergies/Adverse Reactions: Allergies Allergy/AdvReac Type Severity Reaction Status Date / Time venom-honey bee Allergy Edema Verified 04/04/16 13:42 [bee venom (honey bee)] - Social History Does the pt smoke?: No Smoking Status: Never smoker Does the pt drink ETOH?: No Does the pt have substance abuse?: No - Immunizations Immunizations are current?: Yes - POLST Patient has POLST: No PD ED PE NORMAL - Vitals Vital signs reviewed: Yes - General General: Alert and oriented X 3, No acute distress, Well developed/nourished - HEENT HEENT: Atraumatic, PERRL, EOMI, Moist mucous membranes, Pharynx benign - Neck Neck: Supple, no meningeal sign, No adenopathy - Cardiac Cardiac: No murmur, Strong equal pulses, Other (Irregular rhythm with a rate in the 90s.) - Respiratory Respiratory: No respiratory distress, Clear bilaterally - Abdomen Abdomen: Normal bowel sounds, Soft, Non tender, Non distended, No organomegaly - Derm Derm: Normal color, Warm and dry, No rash - Extremities Extremities: No: No edema (Trace pretibial edema.) - Neuro Neuro: Alert and oriented X 3, 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, No motor deficit, No sensory deficit, Normal speech - Psych Psych: Normal mood, Normal affect Results - Vitals Vitals: Vital Signs - 24 hr 10/06/19 10/06/19 10/06/19 08:16 09:10 09:55 Temperature 36.4 C L Heart Rate 87 108 H 122 H Respiratory 18 18 18 Rate Blood Pressure 111/68 121/87 H 114/74 O2 Saturation 97 96 96 10/06/19 10/06/19 10:00 10:05 Temperature Heart Rate 74 84 Respiratory 18 Rate Blood Pressure 103/68 112/78 O2 Saturation 99 Oxygen O2 Source Room air - EKG (time done) 0842 Rate: Rate (enter#) (84) Rhythm: Atrial fibrillation Intervals: No: Wide QRS Ischemia: Normal ST segments Compare to prior EKG: Old EKG unavailable - Labs Labs: Laboratory Tests 10/06/19 10/06/19 10/06/19 08:39 08:39 08:39 WBC 9.4 RBC 4.54 Hgb 14.8 Hct 45.4 MCV 100.0 H MCH 32.6 H MCHC 32.6 RDW 12.5 Plt Count 289 MPV 9.9 Neut # (Auto) 7.0 H Lymph # (Auto) 1.4 L [place] # (Auto) 0.7 Eos # (Auto) 0.2 Baso # (Auto) 0.0 Absolute Nucleated RBC 0.00 Nucleated RBC % 0.0 PT 11.6 INR 1.0 Sodium 142 Potassium 4.0 Chloride 106 Carbon Dioxide 25 Anion Gap 11.0 BUN 16 Creatinine 0.7 Estimated GFR (MDRD) 82 L Glucose 128 H Calcium 8.9 Total Bilirubin 1.0 AST 20 ALT 16 Alkaline Phosphatase 55 Troponin I High Sens Total Protein 6.3 L Albumin 3.8 Globulin 2.5 Albumin/Globulin Ratio 1.5 Lipase 44 10/06/19 08:39 WBC RBC Hgb Hct MCV MCH MCHC RDW Plt Count MPV Neut # (Auto) Lymph # (Auto) [place] # (Auto) Eos # (Auto) Baso # (Auto) Absolute Nucleated RBC Nucleated RBC % PT INR Sodium Potassium Chloride Carbon Dioxide Anion Gap BUN Creatinine Estimated GFR (MDRD) Glucose Calcium Total Bilirubin AST ALT Alkaline Phosphatase Troponin I High Sens 29.4 H* Total Protein Albumin Globulin Albumin/Globulin Ratio Lipase - Rads (name of study) CXR Radiology: EMP read contemporaneously (mild cardiomeg; neg acute) PD MEDICAL DECISION MAKING - ED course Complexity details: reviewed results, re-evaluated patient, d/w patient, d/w family ED course: Rhythm strips from the field did show rates in the upper 140s in A. fib that came down into the 80s after she received the Cardizem. Patient states she has no history of A. fib in the past and is not on blood thinner medications. Her initial troponin is up a little to 29.5. She is not anemic. She did slowly start to trend back up into the 120s here after the Cardizem bolus. She was re- bolused with 10 mg and started on a drip at 5 mg. Nursing Staff came and said she was feeling little dizzy heart rate was in the 80s and her blood pressure had dropped below 100 but was now back up over 112. I asked them to bring the Cardizem drip down to 2.5 mg/h. Discussed with the hospitalist and she will be admitted for observation. - Critical Care Time(min): 30 Time Includes: Direct patient care, Review records, Reassess patient, Document care, Coordinate care, Medical consult Data interpretation: Labs, CXR Departure - Departure Disposition: ED Place in Observation Clinical Impression: Atrial fibrillation with RVR Condition: Good
--- NOTE | 2019-10-06 10:33 | PHARMACY PROGRESS NOTE ---
- Best Possible Medication History Admit Date and Time: Processed by: Pharmacy Medication History completed: Yes Patient Interview: Completed Secondary Source(s): Physician records, Pharmacy records, Insurance records As the person ultimately responsible for medication therapy, providers are able to order a medication from an existing home medication list in [facility] via the "Reconcile Routine" prior to Confirmation of that medication by academic support coordinator. Such practice is discouraged except when the physician, in their clinical judgment, deems that a medical need exists for a medication without regard to previous use.
--- NOTE | 2019-10-06 10:35 | HISTORY & PHYSICAL EXAMINATION ---
Chief Complaint - Chief Complaint Chief Complaint: Chest palpitations History of Present Illness - Admitted From Admitted From:: Home - History Obtained From Records Reviewed: Yes History obtained from: Patient, ER Physician, EMR - History of Present Illness HPI Comment/Other: This is a very pleasant 74-year-old female with a past medical history si gnificant for hypertension, essential tremor, gastric ulcer who presents today complaining of chest palpitations. She states her chest has been fluttering on and off for a few years now but that last night she noticed the palpitations were persistent. She went to sleep and slept fine all night but when she woke up this morning she continued to have palpitations and therefore she sought medical attention. She reports no chest pain or dyspnea. She did feel a little dizzy and lightheaded this morning. She reports no prior history of atrial fibrillation or cardiac disease. Does take propanolol at home for her essential tremor but she did not take a dose this morning. She does have chronic lower extremity edema for which he takes Aldactone and this has been stable. Reports a prior history of gastric ulcer secondary to NSAID use. She was hospitalized about 2 years ago and required transfusions but did not undergo an endoscopy. She continues to take omeprazole and she avoids NSAIDs at the moment. She reports no dark stools or signs of bleeding. In the emergency department, she is found to be afebrile with a temperature of 36.4 . She initially had a heart rate of 140 upon EMS arrival and she was given 15 mg of Cardizem IV. Her heart rates improved to the 80s while she was in the emergency department. Slowly began to creep up again and she was given another 50 mg of Cardizem IV started on a Cardizem infusion. Her blood pressure was stable in the 110 systolic. She was not tachypneic and saturating well on room air. Her labs were unremarkable except for troponin of 29.4. Her EKG revealed atrial fibrillation without signs of ischemia. Given that she remained tachycardic and required a Cardizem infusion, medicine was consulted for admission. Of note I did discuss goals of care with the patient and she would like to be a full code at the moment. 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 She reports a sister was recently diagnosed with thyroid cancer. Living arrangement: At home Living Situation: Alone Social History Notes: Currently lives at home alone but her daughter and [id number] are in the process of moving in with her. Her 1-1/2 years ago. 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 She has lived on [facility] for more than 40 years. She is a non-smoker and denies alcohol use. - Substance History Use: Uses substance without health or social issues: NONE - POLST Patient has POLST: No Meds/Allgy - Home Medications Home Medications: Ambulatory Orders Medication Instructions Recorded Confirmed Atorvastatin Calcium [Lipitor] 40 mg PO QPM 04/03/16 10/06/19 Felodipine [Felodipine ER] 5 mg PO DAILY 04/03/16 10/06/19 Loratadine 10 mg PO DAILY 04/03/16 10/06/19 Propranolol ER [Inderal LA] 60 mg PO DAILY 04/11/17 10/06/19 Omeprazole 20 mg PO DAILY 10/06/19 10/06/19 Spironolactone 25 mg PO DAILY 10/06/19 10/06/19 - Allergies Allergies/Adverse Reactions: Allergies Allergy/AdvReac Type Severity Reaction Status Date / Time venom-honey bee Allergy Edema Verified 04/04/16 13:42 [bee venom (honey bee)] aspirin AdvReac Severe bleeding Verified 10/06/19 11:56 gastric ulcer ibuprofen AdvReac Severe bleeding Verified 10/06/19 11:56 gastric ulcer lactose AdvReac Severe Cramps Verified 10/06/19 11:45 tramadol AdvReac Severe bleeding Verified 10/06/19 11:56 gastric ulcer Review of Systems - Constitutional Constitutional: denies: Fatigue, Fever, Chills, Weakness - Cardiovascular Cariovascular: reports: Irregular heart rate, Palpitations, Lightheadedness. denies: Chest pain, Edema, Syncope, Exertional dyspnea, Decr. exercise tolerance - Respiratory Respiratory: denies: Cough, SOB at rest, SOB with exertion - Gastrointestinal Gastrointestinal: denies: Abdominal pain, Rectal bleeding, Black stools, Bloody stools, Nausea, Vomiting - Genitourinary Genitourinary: denies: Dysuria, Frequency, Urgency - Integumentary Integumentary: denies: Rash - Neurological Neurological: reports: Dizziness. denies: General weakness, Focal weakness - Hematologic/Lymphatic Hematologic/Lymphatic: reports: Bleeding tendencies - All Other Systems All Other Systems: reports: Reviewed and negative Prior Level of Functionality: She is independent with her ADLs. Exam - Vital Signs Reviewed Vital Signs: Yes Vital Signs: Vital Signs x48h Temp Pulse Resp BP Pulse Ox 10/06/19 10:20 91 16 98/61 98 10/06/19 10:05 84 112/78 10/06/19 10:00 74 18 103/68 99 10/06/19 09:55 122 H 18 114/74 96 10/06/19 09:10 108 H 18 121/87 H 96 10/06/19 08:16 36.4 C L 87 18 111/68 97 - Physical Exam General Appearance: positive: No acute distress, Alert Eyes Bilateral: positive: Normal inspection ENT: positive: ENT inspection nml Neck: positive: Nml inspection Respiratory: positive: No respiratory distress. negative: Wheezes, Rales, Rhonchi Cardiovascular: positive: Irregularly irregular, Tachycardia. negative: Bradycardia, Systolic murmur, Diastolic murmur Abdomen: positive: Non-tender, No distention. negative: Tenderness, Guarding, R ebound Skin: positive: No rash, Warm, Dry Extremities: positive: Full ROM, Pedal edema (Trace pitting edema in the bilateral lower extremities.) Neurologic/Psychiatric: positive: Oriented x3. negative: Disoriented to person, Disoriented to place, Disoriented to time, Weakness Conclusion/Plan - Problem List (1) Atrial fibrillation with RVR Conclusion/Plan: This is a new diagnosis for her. She is initially tachycardic in the 140s but is now in the low 100s on 2.5 mg of Cardizem IV. Her EKG does not reveal signs of ischemia although her troponin is elevated at 29. Her electrolytes are acceptable. Did discuss the different treatment options including rate control and anticoagulation. She is agreeable to switching propanolol to metoprolol in hopes of controlling her heart rate. I did discuss that her tremor may become more prominent with this change in medication but she like to try it either way and if it does become bothersome, she will follow-up with her primary care physician. We also discussed anticoagulation including the use of Eliquis and Xarelto given her elevated [id number] score. She does have a history of GI bl eed and she like to hold off on anticoagulation at the moment. I did discuss the benefit of anticoagulation in atrial fibrillation given her risk of stroke. She like to follow-up with her primary care physician once again and decide at that time whether to start anticoagulation or not. We will check a TSH and obtain echocardiogram. Monitor her on telemetry.We will attempt to wean her off the Cardizem drip as metoprolol is initiated. Trend troponin. (2) Hypertension Conclusion/Plan: She is on felodipine, propanolol, aldactone at home. She is currently normotensive while on Cardizem 2.5 mg IV. We will attempt to stop the Cardizem and start her on metoprolol 50 mg twice a day. We will hold the felodipine for the time being. We will resume her Aldactone given her chronic lower extremity edema. We will discontinue the propanolol given we will be starting her on metoprolol. (3) Lower extremity edema Conclusion/Plan: This is chronic in nature for her and she is on Aldactone at home. We will continue her home Aldactone. She does not appear to be in heart failure at this time but we will be obtaining an echocardiogram either way given her atrial fibrillation. (4) Chronic GERD Conclusion/Plan: She is on omeprazole at home. We will continue Protonix while she is hospitalized. (5) Essential tremor Conclusion/Plan: She is on propanolol at home. We will switch this to metoprolol given her atrial fibrillation. She is aware that her tremor may become more prominent with this change in medication. - Lab Results Lab results reviewed: Yes Jae Bones: 10/06/19 08:39 10/06/19 08:39 - Diagnostic Imaging Results Diagnostic Imaging Results: positive: Final report reviewed - EKG Results EKG Interpreted Independently: Yes EKG Findings: EKG reveals atrial fibrillation that is rate controlled with heart rate in the 80s. No signs of ischemia. Core Measures - Anticipated LOS I expect patient to be DC'd or transferred within 96 hours.: Yes - Issues Hospital Issues and Management Plan: 74-year-old female with new onset atrial fibrillation who presents with rapid ventricular response. She is unable to become rate controlled emergency department despite her multiple IV medications. She will be observed in the ICU on a Cardizem drip and titrated to oral medications once her heart rate is controlled. We will obtain an echocardiogram and check a TSH. - DVT/VTE - Prophylaxis VTE/DVT Device ordered at admit?: Yes VTE/DVT Prophylaxis med ordered at admit?: Yes
[2019-10-06] MEDS: METOPROLOL TARTRATE 50 MG TABLET PO SCH ×2 (12:46→20:44)
[2019-10-06] MEDS ORDERED: NON FORMULARY MED PO PRN (13:06)
[2019-10-06] MEDS: SODIUM CHLORIDE FLUSH 0.9% 10 ML SYRINGE IVP SCH ×2 (18:40→20:46)
[2019-10-06] MEDS: SODIUM CHLORIDE FLUSH 0.9% 10 ML SYRINGE IVP PRN (18:45)
[2019-10-06] MEDS ORDERED: diphenhydrAMINE 25 MG CAPSULE PO PRN (20:34)
[2019-10-06] MEDS ORDERED: ATORVASTATIN 40 MG TABLET PO SCH (21:00)
[2019-10-07] MEDS: SODIUM CHLORIDE FLUSH 0.9% 10 ML SYRINGE IVP PRN (00:15)
[2019-10-07 05:35] LABS: BASOPHILS % (AUTO) 0.4 %; EOSINOPHILS # (AUTO) 0.2 10^3/uL (0.0-0.7); EOSINOPHILS % (AUTO) 2.4 %; HGB - HEMOGLOBIN 13.4 g/dL (12.0-16.0); LYMPHOCYTES # (AUTO) 1.7 10^3/uL (1.5-3.5); LYMPHOCYTES % (AUTO) 22.5 %; MEAN CORPUSCULAR HEMOGLOBIN 32.4 pg (27.0-31.0); MEAN CORPUSCULAR HGB CONC 31.9 g/dL (32.0-36.0); MEAN CORPUSCULAR VOLUME 101.4 fL (81.0-99.0); MEAN PLATELET VOLUME 10.1 fL (7.9-10.8); MONOCYTES # (AUTO) 0.7 10^3/uL (0.0-1.0); NEUTROPHILS # (AUTO) 4.9 10^3/uL (1.5-6.6); NEUTROPHILS % (AUTO) 65.3 %; PLT - PLATELET COUNT 243 10^3/uL (130-450); RED BLOOD COUNT 4.14 10^6/uL (4.20-5.40); RED CELL DISTRIBUTION WIDTH 12.6 % (12.0-15.0); WHITE BLOOD COUNT 7.4 x10^3/uL (4.8-10.8)
[2019-10-07 05:57] LABS: CALCIUM 8.8 mg/dL (8.5-10.3); CREATININE 0.5 mg/dL (0.4-1.0); PHOSPHORUS 2.9 mg/dL (2.5-4.6)
[2019-10-07] MEDS ORDERED: PANTOPRAZOLE 40 MG TABLET PO SCH (07:00)
[2019-10-07 07:40] VITALS: BP 126/69
[2019-10-07] MEDS: METOPROLOL TARTRATE 50 MG TABLET PO SCH (08:13)
[2019-10-07] MEDS: SODIUM CHLORIDE FLUSH 0.9% 10 ML SYRINGE IVP SCH (08:14)
--- NOTE | 2019-10-07 08:22 | Discharge Plan ---
Discharge Plan Problem Reviewed?: Yes Disposition: Home, Self Care Condition: Good Prescriptions: Metoprolol Tartrate [Lopressor] 50 mg PO BID #60 tablet Diet: Regular Activity Restrictions: No Restrictions Shower Restrictions: No Driving Restrictions: No Instruction Topics: Metoprolol tablets, Stroke Prevent Live W Atrial Fib, Atrial Fibrillation Health Concerns: You are seen in the hospital because you had an abnormal heart rhythm called atrial fibrillation. This caused your heart rate to be very elevated and for you to feel palpitations as well as dizziness. You were started on a medication called metoprolol and this has improved your heart rate back to normal. You are now back into a normal rhythm. Ultrasound of your heart was completed while you are in the hospital which did not show any significant abnormalities. The concern with atrial fibrillation is that there is a risk of stroke and therefore lots of patients are on blood thinners. It is important that you follow-up with your primary care physician to discuss if you would like to start a blood thinner in the future or not. Plan of Treatment: Please take metoprolol 50 mg twice a day as prescribed. This will help control your heart rate. Please stop taking propanolol as you have now been prescribed metoprolol which is a similar medication but helps control your heart rate better. Please stop taking felodipine for the time being as your blood pressure has been well controlled without it. It is important to follow-up with your primary care physician as if your blood pressure becomes more elevated, this may need to be restarted, There were no other changes made to your medication. Care Goals: Please follow-up with your primary care physician to monitor your blood pressure. It is also highly recommended he discuss with your primary care physician if you should be started on a blood thinner given there is a risk of stroke in people who have atrial fibrillation. No Smoking: If you smoke, Please STOP! Call for help. Follow-up with: Alirio Ford MD [Primary Care Provider] -
[2019-10-07] MEDS ORDERED: SPIRONOLACTONE 25 MG TABLET PO SCH (09:00)
[2019-10-07] MEDS ORDERED: LORATADINE 10 MG TABLET PO SCH (09:00)
[2019-10-07] MEDS ORDERED: ENOXAPARIN 40 MG/0.4 ML SYRINGE SUBQ SCH (09:00)
--- NOTE | 2019-10-07 09:11 | DISCHARGE SUMMARY ---
"Discharge Summary Admit Date: 10/06/19 Discharge Date: 10/07/19 Discharging Provider: Raj Calixto Primary Care Provider: Alirio Ford Code Status: Attempt Resuscitation Condition at Discharge: Good Discharge Disposition: Home, Self Care - DIAGNOSES Admission Diagnoses: Atrial fibrillation with RVR Hypertension Lower extremity edema Chronic GERD Essential tremor Discharge Diagnoses with Status of Each Condition: Atrial fibrillation with RVR - She was initially treated with Cardizem IV and placed on a Cardizem infusion. After discussion with the patient, we agreed to switch her propanolol to metoprolol to help control her heart rate knowing this may cause her tremor to become more prominent. Her on metoprolol 50 mg twice a day and she converted to sinus rhythm. An echocardiogram was obtained which was unremarkable. Her TSH within normal limits. We discussed anticoagulation but she preferred to hold off until she follows up with her primary care physician as she had a prior GI bleed. She was discharged on metoprolol 50 mg twice a day. Hypertension - Her blood pressure has been well controlled on metoprolol 50 mg twice a day as well as Aldactone. Her home felodipine was discontinued given she has been normotensive. She was asked to follow-up with her primary care physician for close monitoring of her blood pressure and to consider adding felodipine again if she would become hypertensive. Lower extremity edema - This is chronic in nature and her echocardiogram was unremarkable. We will continue her home Aldactone. Chronic GERD - Stable. She will be continuing her home omeprazole. Essential tremor - She was previously on propanolol but we switch this to metoprolol given her atrial fibrillation. She will follow-up with her primary care physician if her tremor becomes more prominent. - HPI History of Present Illness: This is a very pleasant 74-year-old female with a past medical history significant for hypertension, essential tremor, gastric ulcer who presents today complaining of chest palpitations. She states her chest has been fluttering on and off for a few years now but that last night she noticed the palpitations were persistent. She went to sleep and slept fine all night but when she woke up this morning she continued to have palpitations and therefore she sought medical attention. She reports no chest pain or dyspnea. She did feel a little dizzy and lightheaded this morning. She reports no prior history of atrial fibrillation or cardiac disease. Does take propanolol at home for her essential tremor but she did not take a dose this morning. She does have chronic lower extremity edema for which he takes Aldactone and this has been stable. Reports a prior history of gastric ulcer secondary to NSAID use. She was hospitalized about 2 years ago and required transfusions but did not undergo an endoscopy. She continues to take omeprazole and she avoids NSAIDs at the moment. She reports no dark stools or signs of bleeding. In the emergency department, she is found to be afebrile with a temperature of 36.4 . She initially had a heart rate of 140 upon EMS arrival and she was given 15 mg of Cardizem IV. Her heart rates improved to the 80s while she was in the emergency department. Slowly began to creep up again and she was given another 50 mg of Cardizem IV started on a Cardizem infusion. Her blood pressure was stable in the 110 systolic. She was not tachypneic and saturating well on room air. Her labs were unremarkable except for troponin of 29.4. Her EKG revealed atrial fibrillation without signs of ischemia. Given that she remained tachycardic and required a Cardizem infusion, medicine was consulted for admission. Of note I did discuss goals of care with the patient and she would like to be a full code at the moment. - CONSULTS | PROCEDURES Procedures: An echocardiogram obtained on October 06 showed an ejection fraction of 55 to 60%. She had grade 1 diastolic dysfunction. There was slight enlargement of the left atrium. Mild aortic regurgitation. The right ventricle was normal in size and function. - HOSPITAL COURSE Hospital Course: Admitted for atrial fibrillation with rapid ventricular response. She started on a Cardizem infusion and observed in the intensive care unit. She was then transitioned to oral metoprolol with improvement in her heart rates to the 70s. She then converted to a sinus rhythm. We discussed anticoagulation but she preferred to hold off until she followed up with her primary care physician. She was discharged onmetoprolol 50 mg twice a day. Echocardiogram was unremarkable. TSH was within normal limits. - ALLERGIES Allergies/Adverse Reactions: Allergies Allergy/AdvReac Type Severity Reaction Status Date / Time venom-honey bee Allergy Edema Verified 04/04/16 13:42 [bee venom (honey bee)] aspirin AdvReac Severe bleeding Verified 10/06/19 11:56 gastric ulcer ibuprofen AdvReac Severe bleeding Verified 10/06/19 11:56 gastric ulcer lactose AdvReac Severe Cramps Verified 10/06/19 11:45 tramadol AdvReac Severe bleeding Verified 10/06/19 11:56 gastric ulcer - MEDICATIONS Home Medications: Ambulatory Orders Medication Instructions Recorded Confirmed Atorvastatin Calcium [Lipitor] 40 mg PO QPM 04/03/16 10/06/19 Loratadine 10 mg PO DAILY 04/03/16 10/06/19 Omeprazole 20 mg PO DAILY 10/06/19 10/06/19 Spironolactone 25 mg PO DAILY 10/06/19 10/06/19 Metoprolol Tartrate [Lopressor] 50 mg PO BID #60 tablet 10/07/19 - PHYSICAL EXAM AT DISCHARGE General Appearance: positive: No acute distress, Alert Eyes Bilateral: positive: Normal inspection ENT: positive: ENT inspection nml Neck: positive: Nml inspection Respiratory: positive: No respiratory distress, Breath sounds nml. negative: Wheezes, Rales, Rhonchi Cardiovascular: positive: Regular rate & rhythm, No murmur. negative: Tachycardia, Bradycardia, Systolic murmur, Diastolic murmur Abdomen: positive: Non-tender, No distention. negative: Tenderness Skin: positive: No rash, Warm, Dry Extremities: positive: Full ROM, Pedal edema (Trace pitting edema in the lower extremities.) Neurologic/Psychiatric: positive: Oriented x3. negative: Disoriented to person, Disoriented to place, Disoriented to time - LABS Result Diagrams: 10/07/19 04:45 10/07/19 04:45 - DIAGNOSTIC IMAGING Diagnostic Imaging Results: Final report reviewed - FOLLOW UP Follow Up: She was asked to follow-up with her primary care physician. - TIME SPENT Time Spent in Discharge (Minutes): 30"
[2019-10-07] MEDS ORDERED: diltiaZEM INJ 125 MG in DEXTROSE 5% 100 ML IV SCH (11:00)
== END 2019-10-07 14:51 | disposition home or self-care (01) ==
LOC: EDUNIT# → ED 08:13 → ICU 10:05 → MS2 22:24
PROVIDERS: ADMIT Internal Medicine; ATTEND Internal Medicine
DX: I48.91 Unspecified atrial fibrillation (principal); I10 Essential (primary) hypertension; R60.0 Localized edema; K21.9 Gastro-esophageal reflux disease without esophagitis; G25.0 Essential tremor; Z87.11 Personal history of peptic ulcer disease
CPT/HCPCS: 36415; 71045; 80048; 80053; 83690; 83735; 84100; 84443; 84484; 85025; 85610; 87150; 93005; 93306; 96361; 96365; 96366; 96375; 99291; A9270; G0378

== ENCOUNTER 2020-02-10 09:51 | Outpatient (CLI) | payer MEDICARE, OTHER | END 2020-02-10 09:52 | disposition home or self-care (01) | LOC: LAB 09:51 → COV 09:52 | PROVIDERS: ATTEND Physician Assistant | DX: Z87.19 Personal history of other diseases of the digestive system (principal) | CPT/HCPCS: 81599 ==

== ENCOUNTER 2020-02-16 13:18 | Outpatient (CLI) | payer MEDICARE, OTHER ==
--- NOTE | 2020-02-22 09:47 | Mammography Report ---
BILATERAL DIGITAL SCREENING MAMMOGRAM 3D/2D WITH CAD: 02/16/2020 CLINICAL: Routine screening. Comparison is made to exams dated: 01/16/2019 mammogram, 11/30/2017 mammogram, 11/19/2016 mammogram, and 10/24/2015 mammogram - [facility]. There are scattered fibroglandular elements in angelina th breasts. Current study was also evaluated with a Computer Aided Detection (CAD) system. No significant masses, calcifications, or other findings are seen in either breast. There has been no significant interval change. IMPRESSION: NEGATIVE There is no mammographic evidence of malignancy. A 1 year screening mammogram is recommended. This exam was interpreted at Station ID: [id number]. NOTE: For mammograms, a report in lay terms will be sent to the patient. Approximately 15% of breast malignancies will not be visualized mammographically. In the management of a palpable breast mass, a negative mammogram must not discourage biopsy of a clinically suspicious lesion. Electronically Signed By: Delvin Duong M.D. [email or web address]:02/19/2020 17:02:00 ACR BI-RADS Category 1: Negative 3341F PARENCHYMAL PATTERN: (A) - The breast(s) demonstrate(s) scattered fibroglandular densities. BI-RADS CATEGORY: (1) - 1 RECOMMENDATION: (ANNUAL) - Recommend routine annual screening mammography. [id number] 1 year screening LATERALITY: (B)
== END 2020-02-16 13:19 | disposition home or self-care (01) ==
LOC: DI 13:18
DX: Z12.31 Encounter for screening mammogram for malignant neoplasm of breast (principal)
CPT/HCPCS: 77063; 77067

== ENCOUNTER 2020-10-25 10:21 | Outpatient (CLI) | payer MEDICARE, OTHER ==
[2020-10-25 13:01] LABS: BASOPHILS # (AUTO) 0.1 10^3/uL (0.0-0.1); BASOPHILS % (AUTO) 0.5 %; EOSINOPHILS # (AUTO) 0.2 10^3/uL (0.0-0.7); EOSINOPHILS % (AUTO) 1.7 %; HGB - HEMOGLOBIN 15.5 g/dL (12.0-16.0); LYMPHOCYTES # (AUTO) 1.9 10^3/uL (1.5-3.5); LYMPHOCYTES % (AUTO) 19.9 %; MEAN CORPUSCULAR HGB CONC 31.6 g/dL (32.0-36.0); MEAN PLATELET VOLUME 10.2 fL (7.9-10.8); MONOCYTES # (AUTO) 0.5 10^3/uL (0.0-1.0); NEUTROPHILS # (AUTO) 6.8 10^3/uL (1.5-6.6); NEUTROPHILS % (AUTO) 72.4 %; PLT - PLATELET COUNT 276 10^3/uL (130-450); RED BLOOD COUNT 4.85 10^6/uL (4.20-5.40); RED CELL DISTRIBUTION WIDTH 12.4 % (12.0-15.0); WHITE BLOOD COUNT 9.4 x10^3/uL (4.8-10.8)
[2020-10-25 13:42] LABS: ALBUMIN 4.6 g/dL (3.2-5.5); ALKALINE PHOSPHATASE 52 IU/L (42-121); ALT ALANINE AMINOTRANSFERASE 20 IU/L (10-60); AST ASPARTATE AMINOTRANSFERASE 22 IU/L (10-42); BILIRUBIN,TOTAL 0.8 mg/dL (0.2-1.0); BUN - BLOOD UREA NITROGEN 24 mg/dL (6-20); CALCIUM 10.2 mg/dL (8.5-10.3); CARBON DIOXIDE - CO2 28 mmol/L (21-32); CHLORIDE 105 mmol/L (101-111); CHOL/HDL RATIO 3.8 (<4.4); CHOLESTEROL 222 mg/dL; CREATININE 0.9 mg/dL (0.4-1.0); GLUCOSE 108 mg/dL (70-100); HDL CHOLESTEROL 59 mg/dL; LDL CHOLESTEROL,CALCULATED 126 mg/dL; LDL/HDL RATIO 2.1 (<4.4); TOTAL PROTEIN 6.9 g/dL (6.7-8.2); VLDL CHOLESTEROL 37 mg/dL
== END 2020-10-25 10:22 | disposition home or self-care (01) ==
LOC: LAB.N 10:21
PROVIDERS: ATTEND Nurse Practitioner Family
DX: I48.0 Paroxysmal atrial fibrillation (principal); D50.9 Iron deficiency anemia, unspecified; R73.9 Hyperglycemia, unspecified; I10 Essential (primary) hypertension; E78.5 Hyperlipidemia, unspecified
CPT/HCPCS: 36415; 80053; 80061; 83721; 84443; 85025

== ENCOUNTER 2020-12-07 08:00 | Outpatient (CLI) | payer MEDICARE, OTHER ==
[2020-12-07 18:32] LABS: ALBUMIN 4.6 g/dL (3.2-5.5); ALBUMIN/GLOBULIN RATIO 1.6 (1.0-2.2); BILIRUBIN,TOTAL 0.6 mg/dL (0.2-1.0); CALCIUM 10.2 mg/dL (8.5-10.3); CREATININE 0.9 mg/dL (0.4-1.0); POTASSIUM 4.2 mmol/L (3.5-5.0); TOTAL PROTEIN 7.4 g/dL (6.7-8.2)
== END 2020-12-07 23:59 | disposition home or self-care (01) ==
LOC: LAB.WCP 08:00
PROVIDERS: ATTEND Nurse Practitioner Family
DX: B35.1 Tinea unguium (principal)
CPT/HCPCS: 36415; 80053

== ENCOUNTER 2021-03-02 13:24 | Outpatient (CLI) | payer MEDICARE, OTHER ==
--- NOTE | 2021-03-03 10:35 | Mammography Report ---
BILATERAL DIGITAL SCREENING MAMMOGRAM 3D/2D: 03/02/2021 CLINICAL: Routine screening. Comparison is made to exams dated: 02/16/2020 mammogram, 01/16/2019 mammogram, 11/20/2017 mammogram, and mammogram - [facility]. There are scattered fibroglandular elements in bot h breasts. No significant masses, calcifications, or other findings are seen in either breast. There has been no significant interval change. IMPRESSION: NEGATIVE There is no mammographic evidence of malignancy. A 1 year screening mammogram is recommended. This exam was interpreted at Station ID: [id number]. NOTE: For mammograms, a report in lay terms will be sent to the patient. Approximately 15% of breast malignancies will not be visualized mammographically. In the management of a palpable breast mass, a negative mammogram must not discourage biopsy of a clinically suspicious lesion. Electronically Signed By: Macho Blakely M.D. slc/penrad:03/02/2021 14:46:35 ACR BI-RADS Category 1: Negative 3341F PARENCHYMAL PATTERN: (A) - The breast(s) demonstrate(s) scattered fibroglandular densities. BI-RADS CATEGORY: (1) - 1 RECOMMENDATION: (ANNUAL) - Recommend routine annual screening mammography. [id number] 1 year screening LATERALITY: (B)
== END 2021-03-02 13:25 | disposition home or self-care (01) ==
LOC: DI 13:24
DX: Z12.31 Encounter for screening mammogram for malignant neoplasm of breast (principal)

== ENCOUNTER 2021-05-18 08:00 | Outpatient (CLI) | payer MEDICARE, OTHER ==
[2021-05-18 12:32] LABS: ALBUMIN 4.4 g/dL (3.2-5.5); ALBUMIN/GLOBULIN RATIO 1.5 (1.0-2.2); BILIRUBIN,TOTAL 0.8 mg/dL (0.2-1.0); CALCIUM 10.2 mg/dL (8.5-10.3); CREATININE 0.9 mg/dL (0.4-1.0); POTASSIUM 3.9 mmol/L (3.5-5.0); TOTAL PROTEIN 7.4 g/dL (6.7-8.2)
[2021-05-18 12:35] LABS: ESTIMATED AVERAGE GLUCOSE 123 mg/dL (70-100); HEMOGLOBIN A1c% 5.9 % (4.27-6.07)
== END 2021-05-18 23:59 | disposition home or self-care (01) ==
LOC: LAB.WCP 08:00
PROVIDERS: ATTEND Obstetrics & Gynecology
DX: Z00.00 Encounter for general adult medical examination without abnormal findings (principal); Z13.1 Encounter for screening for diabetes mellitus
CPT/HCPCS: 36415; 80053; 82306; 83036

== ENCOUNTER 2021-06-07 08:42 | Outpatient (CLI) | payer MEDICARE, OTHER ==
[2021-06-07 11:50] LABS: BILIRUBIN,URINE NEGATIVE (NEGATIVE); GLUCOSE, URINE (UA) NEGATIVE (NEGATIVE); KETONES,URINE (UA) NEGATIVE (NEGATIVE); LEUKOCYTE ESTERASE, URINE NEGATIVE (NEGATIVE); NITRITE,URINE NEGATIVE (NEGATIVE); OCCULT BLOOD,URINE NEGATIVE (NEGATIVE); PROTEIN,URINE NEGATIVE (NEGATIVE); UROBILINOGEN,URINE 0.2 (NORMAL) E.U./dL (NORMAL)
[2021-06-07 11:52] LABS: BASOPHILS # (AUTO) 0.1 10^3/uL (0.0-0.1); BASOPHILS % (AUTO) 0.7 %; CLARITY,URINE CLEAR (CLEAR); EOSINOPHILS # (AUTO) 0.2 10^3/uL (0.0-0.7); EOSINOPHILS % (AUTO) 3.2 %; HCT - HEMATOCRIT 48.5 % (37.0-47.0); HGB - HEMOGLOBIN 15.2 g/dL (12.0-16.0); LYMPHOCYTES # (AUTO) 1.6 10^3/uL (1.5-3.5); LYMPHOCYTES % (AUTO) 20.7 %; MEAN CORPUSCULAR HEMOGLOBIN 31.9 pg (27.0-31.0); MEAN CORPUSCULAR HGB CONC 31.3 g/dL (32.0-36.0); MEAN CORPUSCULAR VOLUME 101.7 fL (81.0-99.0); MEAN PLATELET VOLUME 10.4 fL (7.9-10.8); MONOCYTES # (AUTO) 0.6 10^3/uL (0.0-1.0); MONOCYTES % (AUTO) 7.9 %; NEUTROPHILS # (AUTO) 5.1 10^3/uL (1.5-6.6); PLT - PLATELET COUNT 296 10^3/uL (130-450); RED BLOOD COUNT 4.77 10^6/uL (4.20-5.40); RED CELL DISTRIBUTION WIDTH 12.6 % (12.0-15.0); WHITE BLOOD COUNT 7.6 x10^3/uL (4.8-10.8)
[2021-06-07 12:04] LABS: ESTIMATED AVERAGE GLUCOSE 123 mg/dL (70-100); HEMOGLOBIN A1c% 5.9 % (4.27-6.07)
[2021-06-07 12:05] LABS: ALBUMIN 4.7 g/dL (3.2-5.5); ALBUMIN/GLOBULIN RATIO 1.7 (1.0-2.2); ALKALINE PHOSPHATASE 66 IU/L (42-121); ALT ALANINE AMINOTRANSFERASE 19 IU/L (10-60); AST ASPARTATE AMINOTRANSFERASE 21 IU/L (10-42); BILIRUBIN,TOTAL 0.7 mg/dL (0.2-1.0); BUN - BLOOD UREA NITROGEN 18 mg/dL (6-20); CALCIUM 9.9 mg/dL (8.5-10.3); CARBON DIOXIDE - CO2 30 mmol/L (21-32); CHLORIDE 102 mmol/L (101-111); CHOL/HDL RATIO 3.2 (<4.4); CHOLESTEROL 175 mg/dL; CREATININE 0.9 mg/dL (0.4-1.0); GFR - MDRD 61 (>89); GLUCOSE 111 mg/dL (70-100); HDL CHOLESTEROL 54 mg/dL; LDL CHOLESTEROL,CALCULATED 83 mg/dL; LDL/HDL RATIO 1.5 (<4.4); POTASSIUM 4.6 mmol/L (3.5-5.0); SODIUM 141 mmol/L (135-145); TOTAL PROTEIN 7.5 g/dL (6.7-8.2); TRIGLYCERIDES 191 mg/dL; VLDL CHOLESTEROL 38 mg/dL
[2021-06-07 12:09] LABS: BACTERIA,URINE Rare /HPF (None Seen); RBC,URINE None Seen /HPF (0-5); SQUAMOUS EPITHELIAL CELL,UR MOD Squamous (<= Few); WBC,URINE 0-3 /HPF (0-5)
[2021-06-07 12:10] LABS: MUCUS,URINE Moderate Strands
[2021-06-07 12:15] LABS: THYROID STIMULATING HORMONE 2.22 uIU/mL (0.34-5.60)
[2021-06-07 12:17] LABS: FREE T4 (FREE THYROXINE) 0.76 ng/dL (0.58-1.64)
== END 2021-06-07 23:59 | disposition home or self-care (01) ==
LOC: LAB.WCP 08:42
PROVIDERS: ATTEND Nurse Practitioner
DX: I10 Essential (primary) hypertension (principal); R73.9 Hyperglycemia, unspecified; I48.0 Paroxysmal atrial fibrillation; E78.5 Hyperlipidemia, unspecified
CPT/HCPCS: 36415; 80053; 80061; 81001; 83036; 83721; 84439; 84443; 85025; 87086

== ENCOUNTER 2022-03-21 12:50 | Outpatient (CLI) | payer MEDICARE, OTHER ==
--- NOTE | 2022-03-22 08:29 | Mammography Report ---
BILATERAL DIGITAL SCREENING MAMMOGRAM 3D/2D: 03/21/2022 CLINICAL: Routine screening. Comparison is made to exams dated: 03/02/2021 mammogram, 02/16/2020 mammogram, 01/16/2019 mammogram, 2017 mammogram, 11/19/2016 mammogram, and 10/24/2015 mammogram - [facility]. There are scattered fibroglandular elements in both breasts. No significant masses, calcifications, or other findings are seen in either breast. There has been no significant interval change. IMPRESSION: NEGATIVE There is no mammographic evidence of malignancy. A 1 year screening mammogram is recommended. Based on the Tyrer Cuzick model (a risk assessment model) the patients lifetime risk is 4.2% and her 10 year risk is 0.0%. According to the ACR, ACS, and NCCN guidelines, an annual breast MRI exam earl g with mammogram is recommended if the patients lifetime risk is 20% or greater. This exam was interpreted at Station ID: [id number]. NOTE: For mammograms, a report in lay terms will be sent to the patient. Approximately 15% of breast malignancies will not be visualized mammographically. In the management of a palpable breast mass, a negative mammogram must not discourage biopsy of a clinically suspicious lesion. Electronically Signed By: Shai farfan/ivelisse:03/21/2022 18:04:31 ACR BI-RADS Category 1: Negative 3341F PARENCHYMAL PATTERN: (A) - The breast(s) demonstrate(s) scattered fibroglandular densities. BI-RADS CATEGORY: (1) - 1 RECOMMENDATION: (ANNUAL) - Recommend routine annual screening mammography. [id number] 1 year screening LATERALITY: (B)
== END 2022-03-21 12:51 | disposition home or self-care (01) ==
LOC: DI 12:50
DX: Z12.31 Encounter for screening mammogram for malignant neoplasm of breast (principal)

== ENCOUNTER 2023-02-01 11:06 | Outpatient (CLI) | payer MEDICARE, OTHER ==
[2023-02-01 17:38] LABS: BASOPHILS % (AUTO) 0.5 %; EOSINOPHILS # (AUTO) 0.2 10^3/uL (0.0-0.7); EOSINOPHILS % (AUTO) 2.1 %; HCT - HEMATOCRIT 43.6 % (37.0-47.0); HGB - HEMOGLOBIN 13.3 g/dL (12.0-16.0); LYMPHOCYTES % (AUTO) 23.2 %; MEAN CORPUSCULAR HGB CONC 30.5 g/dL (32.0-36.0); MEAN CORPUSCULAR VOLUME 95.2 fL (81.0-99.0); MEAN PLATELET VOLUME 10.6 fL (7.9-10.8); MONOCYTES # (AUTO) 0.8 10^3/uL (0.0-1.0); MONOCYTES % (AUTO) 9.8 %; NEUTROPHILS # (AUTO) 5.4 10^3/uL (1.5-6.6); PLT - PLATELET COUNT 286 10^3/uL (130-450); RED BLOOD COUNT 4.58 10^6/uL (4.20-5.40); RED CELL DISTRIBUTION WIDTH 15.8 % (12.0-15.0); WHITE BLOOD COUNT 8.4 x10^3/uL (4.8-10.8)
== END 2023-02-01 11:07 | disposition home or self-care (01) ==
LOC: LAB.N 11:06
PROVIDERS: ATTEND Nurse Practitioner Family
DX: I73.9 Peripheral vascular disease, unspecified (principal); L03.115 Cellulitis of right lower limb
CPT/HCPCS: 36415; 85025

== ENCOUNTER 2023-03-22 13:50 | Outpatient (CLI) | payer MEDICARE, OTHER ==
--- NOTE | 2023-03-25 08:55 | Mammography Report ---
BILATERAL DIGITAL SCREENING MAMMOGRAM 3D/2D: 03/22/2023 CLINICAL: Routine screening. Comparison is made to exams dated: 03/21/2022 mammogram, 03/02/2021 mammogram, 02/16/2020 mammogram, and 01/16/2019 mammogram - [facility]. There are scattered areas of fibroglandular density in both breasts (category b / 25%-50% glandular t issue). No significant masses, calcifications, or other findings are seen in either breast. There has been no significant interval change. IMPRESSION: NEGATIVE There is no mammographic evidence of malignancy. A 1 year screening mammogram is recommended. Based on the Tyrer Cuzick model (a risk assessment model) the patients lifetime risk is 3.7% and her 10 year risk is 0.0%. According to the ACR, ACS, and NCCN guidelines, an annual breast MRI exam earl g with mammogram is recommended if the patients lifetime risk is 20% or greater. This exam was interpreted at Station ID: [id number]. NOTE: For mammograms, a report in lay terms will be sent to the patient. Approximately 15% of breast malignancies will not be visualized mammographically. In the management of a palpable breast mass, a negative mammogram must not discourage biopsy of a clinically suspicious lesion. Electronically Signed By: Macho [email or web address]:03/22/2023 18:03:43 letter sent: No_Letter ACR BI-RADS Category 1: Negative 3341F PARENCHYMAL PATTERN: (A) - The breast(s) demonstrate(s) scattered fibroglandular densities. BI-RADS CATEGORY: (1) - 1 Mammogram [id number] 1 year screening LATERALITY: (B)
== END 2023-03-22 13:51 | disposition home or self-care (01) ==
LOC: DI 13:50
DX: Z12.31 Encounter for screening mammogram for malignant neoplasm of breast (principal)